=== PATIENT | female | born 1990 | race Caucasian/White ===

== ENCOUNTER 2022-05-24 | Emergency (ER) | payer OTHER ==
[2022-05-24 00:47] LABS: Hemoglobin 14.1 g/dL (12.0-16.0); Mean Corpuscular HGB CONC 35.3 g/dL (32.0-36.0); Mean Corpuscular Hemoglobin 31.6 pg (27.0-31.0); Mean Corpuscular Volume 89.6 fl (78.0-98.0); Mean Platelet Volume 7.3 fL (7.4-10.4); Platelet Count 189 10x3/uL (130-400); RBC Distribution Width 11.3 % (11.5-14.5); Red Blood Cell (RBC) Count 4.48 mill/uL (4.20-5.40); White Blood Cell (WBC) Count 8.8 10x3/uL (4.8-10.8)
[2022-05-24 01:02] LABS: BHCG - Serum Negative (NEGATIVE); Pregs Control Background? CLEAR/WHITE (CLR/WHITE); Pregs Control Bar Appear? YES (CONTROL BAR)
[2022-05-24 01:08] LABS: Bilirubin Negative (Negative); Blood, Urine Large (Negative); Clarity Clear (Clear); Glucose, Urine (Dipstick) Negative (Negative); Ketone, Urine Trace mg/dL (Negative); Leukocyte Negative (Negative); Nitrite Negative (Negative); Protein, Urine (Dipstick) Negative (Neg-Trace); Specific Gravity, Urine 1.015 (1.005-1.030); Urobilinogen 0.2 mg/dL (Less than 2); pH, Urine 7.5 (5.0-9.0)
[2022-05-24 01:14] LABS: ALT (SGPT) 9 U/L (8-55); AST (SGOT) 15 U/L (5-34); Albumin 4.7 g/dL (3.5-5.0); Alkaline Phosphatase 58 U/L (40-110); Anion Gap 18 mmol/L (10-20); BUN (Urea Nitrogen) 16 mg/dL (7.0-18.7); Bilirubin, Total 0.5 mg/dL (0.2-1.2); Calc. Creatinine Clearance 0 mL/min (70-130); Calcium 9.5 mg/dL (7.8-10.44); Carbon Dioxide 24 mmol/L (22-29); Chloride 103 mmol/L (98-107); Estimated GFR 106; Globulin 2.6 g/dL (2.4-3.5); Glucose 98 mg/dL (70-105); Lipase 46 U/L (8-78); Protein, Total 7.3 g/dL (6.0-8.3); Sodium 141 mmol/L (136-145)
[2022-05-24 01:14] LABS: RBC/HPF Greater than 50 HPF (0-3)
[2022-05-24 01:15] LABS: Bacteria/HPF None Seen HPF (None Seen); Squamous Epithelial None Seen HPF (0-3); WBC/HPF None Seen HPF (0-3)
[2022-05-24 01:30] LABS: Eosinophils 2 % (0-10); Lymphocytes 27 % (21-51); MDiff Complete? YES; Monocytes 4 % (0-10); Neutrophil 66 % (42-75); RBC Morphology Normal
[2022-05-24] MEDS ORDERED: Ondansetron ODT 4 MG TAB ONE (03:38)
[2022-05-24] MEDS ORDERED: HYDROcodone/Acetaminophen 5/325 mg Tablet ONE (03:38)
[2022-05-24] MEDS ORDERED: Iopamidol 370 76% 100 ML VIAL ONE (15:20)
== END 2022-05-24 03:44 | disposition home or self-care (01) ==
LOC: BURERS
DX: N83.201 Unspecified ovarian cyst, right side (principal)
CPT/HCPCS: 74177; 80053; 81003; 81015; 83605; 83690; 84703; 85025; Q0162; Q9967